=== PATIENT | female | born 1985 | race African-American/Black ===

== ENCOUNTER 2017-04-10 00:43 | Emergency (ER) | payer OTHER, SELFPAY ==
[2017-04-10] MEDS ORDERED: Acetaminophen 500 MG TAB ONE (00:55)
--- NOTE | 2017-04-10 09:02 | RAD ---
RIGHT KNEE 4 VIEWS: HISTORY: Injury. COMPARISON: None. FINDINGS: Trace joint effusion. No acute fracture or malalignment. IMPRESSION: No acute fracture or malalignment. POS: [facility]
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
== END 2017-04-10 03:07 | disposition home or self-care (01) ==
LOC: ERS 00:43
DX: S00.03XA Contusion of scalp, initial encounter (principal); S00.83XA Contusion of other part of head, initial encounter; J45.909 Unspecified asthma, uncomplicated; F17.210 Nicotine dependence, cigarettes, uncomplicated; Y08.89XA Assault by other specified means, initial encounter
CPT/HCPCS: 70450; 70486; 81025

== ENCOUNTER 2017-09-28 13:10 | Day surgery (SDC) | payer OTHER ==
[2017-09-28 13:37] VITALS: BMI 27.2
[2017-09-28 13:42] VITALS: BP 107/70; TEMP 98.9
--- NOTE | 2017-09-28 14:20 | PDOC.LDHP ---
Labor and Delivery H&P Chief complaint: other (Was visiting patient in the ICU and [place] dizzy and wanted her BP checked.) HPI: This is a 32 yo F @ 23w5d presents w/ PMH of anemia of , uterine fibroids posterior, dizziness after standing for a prolonged period in the ICU when visiting a patient. She states that this happened in the past when she was standing too long. She has had allergies for the past few weeks, + sinus congestion, sinus headache. Otherwise, no complaints. No LOF, vaginal bleeding, CTX, abdominal pain. Denies any fevers, chills, CP, SOB. She states that she doesn't drink very much water, and has been visiting patient in the ICU and has been standing more than usual. Dating criteria: last menstrual period (C/o 12.4 wk us) Grav: 6 Para: 5 Current complications: none Abnormal US findings: Yes (Posterior uterine fibroids) Past Medical History: 1) Posterior Uterine fibroids 2) Anemia of Current medications: pre-bhavesh vitamins, iron, other (Zyrtec PRN) Previous surgical history: other (umbilical hernia repairs ) Social history: tobacco use (Quit 3 months ago) - Physical Exam Vital signs reviewed and normal: yes General: NAD, resting Heart: RRR Lungs: nonlabored breathing Abdomen: NTTP Extremeties: no edema - Assessment This is a 32 yo AAF @ 23w5d presents w/ dizziness. A/P: 1) Dizziness in - likely 2/2 to dehydration. Will fluid resuscitate patient. Patient is back to baseline. Orthostatic vital signs currently normal. BG 107. 2) IUP - FHT wnl. No CTX or concerns. F/u with OB. 2) Seasonal Allergies - Currently taking Zyrtec PRN. F/u with OB. 3) Anemia of - will check H&H to r/o symptomatic anemia. No current s &s of bleeding 4) Posterior uterine fibroids - f/u with OB. <Suzan Youngblood - Last Filed: 09/28/17 14:52> <David Metcalf - Last Filed: 09/30/17 15:20> Allergies/Adverse Reactions: Allergies Allergy/AdvReac Type Severity Reaction Status Date / Time No Known Allergies Allergy Verified 12/15/12 10:54 Attending Addendum - Attending Addendum Date/Time: 09/30/17 5265 I personally evaluated the patient and discussed the management with Dr. Youngblood. I agree with the History, Examination, Assessment and Plan documented above with any addition or exceptions noted below. 32 y.o. @ 23.5 weeks EGA with typical s/s's of . Encouraged increased hydration to maintain volume for adequate perfusion and prevention of dizziness experienced. tracings and objective findings are c/w normal . <David Metcalf - Last Filed: 09/30/17 15:20>
[2017-09-28 14:43] LABS: Hemoglobin 9.8 g/dL (12.0-16.0); Mean Corpuscular HGB CONC 32.4 g/dL (32.0-36.0); Mean Corpuscular Hemoglobin 29.2 pg (27.0-31.0); Mean Platelet Volume 7.1 fL (7.4-10.4); Platelet Count 243 thou/uL (130-400); RBC Distribution Width 12.9 % (11.5-14.5); Red Blood Cell (RBC) Count 3.35 mill/uL (4.20-5.40); White Blood Cell (WBC) Count 8.7 thou/uL (4.8-10.8)
== END 2017-09-28 15:08 | disposition home or self-care (01) ==
LOC: L&D/OP 13:10
PROVIDERS: ATTEND Family Medicine
DX: O99.89 Other specified diseases and conditions complicating pregnancy, childbirth and the puerperium (principal); R42 Dizziness and giddiness; O99.012 Anemia complicating pregnancy, second trimester; D64.9 Anemia, unspecified; O34.12 Maternal care for benign tumor of corpus uteri, second trimester; D25.9 Leiomyoma of uterus, unspecified; Z3A.23 23 weeks gestation of pregnancy; Z87.891 Personal history of nicotine dependence; Z79.899 Other long term (current) drug therapy
CPT/HCPCS: 36415; 36416; 85027

== ENCOUNTER 2017-10-09 22:26 | Emergency (ER) | payer OTHER ==
[2017-10-10] MEDS ORDERED: Metoclopramide 10 MG/10 ML UDCUP ONE (00:08)
[2017-10-10] MEDS ORDERED: diphenhydrAMINE 50 MG/ML VIAL ONE (00:08)
[2017-10-10] MEDS ORDERED: Promethazine HCl 25 MG/ML VIAL ONE (00:09)
[2017-10-10 02:25] LABS: Bilirubin Negative (Negative); Blood, Urine Negative (Negative); Clarity CLEAR (Clear); Glucose, Urine (Dipstick) Negative (Negative); Leukocyte Small (Negative); Nitrite Negative (Negative); Protein, Urine (Dipstick) Negative (Neg-Trace); Specific Gravity, Urine 1.009 (1.002-1.036)
[2017-10-10 02:28] LABS: Bacteria/HPF None Seen HPF (None Seen); Hyaline Casts/LPF 0-3 HYALINE CAST LPF (0-3 Hyaline); Pathc Cast-AUWi Flag 0.58 (0-2.49); RBC/HPF 0-3 HPF (0-3); Squamous Epithelial 0-3 HPF (0-3)
--- NOTE | 2017-10-10 08:33 | CT ---
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 Headache worse with bright lights or loud noises. Denies n/v. Also reports blurry visi on that started with headache. Pt states she gets headaches occassionally but has never had a headache this bad in the past. TECHNIQUE: Axial computed tomography images of the head/brain without intravenous contrast. COMPARISON: No relevant prior studies available. FINDINGS: Brain: Mild volume loss No hemorrhage. No significant white matter disease. No edema. Ventricles: Unremarkable. No ventriculomegaly. Bones/joints: Unremarkable. No acute fracture. Soft tissues: Unremarkable. Sinuses: There is mild mucosal thickening of the bilateral ethmoid air cells. No acute sinusitis. Mastoid air cells: Unremarkable as visualized. No mastoid effusion. IMPRESSION: No intracranial hemorrhage. Please see discussion above. Thank you for allowing us to participate in the care of your patient. Dictated and Authenticated by: Too Angeles MD 10/10/2017 1:28 AM Central Time ([place] & [place]) FINAL REPORT EMERGENCY AFTER HOURS BRAIN CT WITHOUT IV CONTRAST: Date: 10/10/17 Time: 0116 hours IMPRESSION: Mild sinus mucosal disease. Motion artifact No mass or bleed, or other acute process. Stable from yani or study of 04/10/17. Report in agreement with preliminary report given on-call by [facility]. POS: [facility]
== END 2017-10-10 03:18 | disposition home or self-care (01) ==
LOC: ERS 22:26
DX: O99.89 Other specified diseases and conditions complicating pregnancy, childbirth and the puerperium (principal); R51 Headache; O23.42 Unspecified infection of urinary tract in pregnancy, second trimester; O99.512 Diseases of the respiratory system complicating pregnancy, second trimester; O99.332 Smoking (tobacco) complicating pregnancy, second trimester
CPT/HCPCS: 70450; 81003; 81015; 96365; 96375; J1200; J2550

== ENCOUNTER 2018-01-17 22:00 | Inpatient (IN) | payer OTHER ==
[~2018-01-17 22:00] MED LIST: Bupivacaine 0.25% HCL 30 ML VIAL ONE
[2018-01-17 22:49] VITALS: BMI 27.8
--- NOTE | 2018-01-18 00:37 | PDOC.EVN ---
Event Note - Event Note Event Note: Date/Time: 01/18/18 0037 I personally evaluated the patient and discussed the management with Dr. Gomes. I agree with the History, Examination, Assessment and Plan. Resident H&P is pending.
[2018-01-18] MEDS ORDERED: Ondansetron HCl/PF 4 MG/2 ML Vial IVP PRN ×2 (00:55→10:18)
[2018-01-18] MEDS ORDERED: Promethazine HCl 25 MG/ML VIAL IM PRN ×2 (00:55→10:18)
[2018-01-18] MEDS ORDERED: Penicillin G Potassium 5 MILL.UNITS in Sodium Chloride 0.9% 100 ML IVPB SCH (01:00)
[2018-01-18 01:20] LABS: Hemoglobin 10.6 g/dL (12.0-16.0); Mean Corpuscular HGB CONC 34.3 g/dL (32.0-36.0); Mean Corpuscular Hemoglobin 29.5 pg (27.0-31.0); Mean Platelet Volume 8.5 fL (7.4-10.4); Platelet Count 186 thou/uL (130-400); Red Blood Cell (RBC) Count 3.61 mill/uL (4.20-5.40); White Blood Cell (WBC) Count 8.2 thou/uL (4.8-10.8)
[2018-01-18] MEDS: Lactated Ringer's 1,000 ML IV SCH ×3 (01:36→10:25)
[2018-01-18] MEDS: Misoprostol 100 MCG TAB VAG SCH ×3 (01:57→18:02)
[2018-01-18 02:03] LABS: HBSAg Index 0.18 S/CO (0-0.99); HIV (1/2) Antibody/Antigen Non-Reactive (NonReactive); Hep B Surf Ag Non-Reactive S/CO (NonReactive)
--- NOTE | 2018-01-18 02:46 | PDOC.LDHP ---
Labor and Delivery H&P Chief complaint: scheduled induction HPI: 32F @ 39.4 presents for scheduled induction. complicated by anterior uterine fibroid and h/o anemia of . Current gestational age (weeks): 39 (39 and 4 days) Due date: 01/20/18 Dating criteria: last menstrual period Grav: 6 Para: 5 Current complications: other (Anterior fibroid, h/o anemia of , GBS+) Abnormal US findings: Yes (Anterior fibroid, did not show up on US at [facility]) Past Medical History: Bacterial vaginosis and yeast infection Current medications: pre-bhavesh vitamins, iron, other (Zrytec) Previous surgical history: none Social history: none - Physical Exam Vital signs reviewed and normal: yes General: NAD, resting, breathing through contractions Heart: RRR Lungs: CTAB Abdomen: gravid Extremeties: no edema FHT: category 1, acceleration absent, variability present - Vaginal Exam cm dilated: 3 Effacement: 50% Station: -2 - OB Labs Blood type: O RH: positive Antibody Screen: negative HIV: negative RPR: negative HEPSAg: negative 1 hour GCT: negative Rubella: immune - Assessment L&D Assessment: elective induction at term - Plan Plan: admit to L&D, cervical ripening, anesthesia consult for pain management <Karthikeyan Peers M - Last Filed: 01/18/18 02:40> <Daniel Blair - Last Filed: 01/18/18 07:26> Allergies/Adverse Reactions: Allergies Allergy/AdvReac Type Severity Reaction Status Date / Time No Known Allergies Allergy Verified 12/15/12 10:54 Attending Addendum - Attending Addendum Date/Time: 01/18/18 0725 I personally evaluated the patient and discussed the management with Dr. Gomes and Dr Peres early this morning. I agree with the History, Examination, Assessment and Plan documented above with any addition or exceptions noted below. <Daniel Blair - Last Filed: 01/18/18 07:26>
[2018-01-18] MEDS ORDERED: Penicillin G 2.5 MILL.units 50 ML ONE ×2 (05:06→09:23)
[2018-01-18] MEDS: Penicillin G Potassium 2.5 MILL.UNITS in Sodium Chloride 0.9% 100 ML IVPB SCH ×4 (05:27→23:41)
--- NOTE | 2018-01-18 05:39 | PDOC.OBLPN ---
FMR OB Labor PN: Subj - Interval History Hospital Day: 2 Chief Complaint: Pt feeling contractions. Baby moving. No LOF or vag bleeding. FMR OB Labor PN: Obj - Maternal Vital signs: BP 116/55, P 71 FMR OB Labor PN: Exam - Physical Exam General: NAD, awake, alert and oriented HEENT: normocephalic and atraumatic Heart: RRR, normal S1/S2, no murmurs/rubs/gallops General: CTAB, no respiratory distress Abdomen: gravid - Pelvic Exam Vulva: normal hair distribution Cervix: no masses SVE: 3/70/-2 Ledesma score: 8 Membranes: intact Presentation: cephalic FMR OB Labor PN: Data - Labs Lab results: Laboratory Results - last 24 hr 01/18/18 01/18/18 01/18/18 00:00 00:00 00:00 WBC 8.2 RBC 3.61 L Hgb 10.6 L Hct 31.0 L MCV 86.0 MCH 29.5 MCHC 34.3 RDW 14.0 Plt Count 186 MPV 8.5 Hep Bs Antigen Non-Reactive HIV 1&2 Antigen & Ab Non-Reactive Blood Type O POSITIVE Antibody Screen NEGATIVE FMR OB Labor PN: A/P Disposition: 32 yo F, 39.5 wk via 12.4 wk sono, IOL IOL SVE: 3/70/-2 Ledesma score: 8 FHTS: baseline 135, mod variability, good accels, no decels; FHTs reassuring Last cytotec @ 0200 Continue monitoring progress. Anesthesia consult available for pain management. Discussion: Date/Time: 01/18/18 0856 This H&P was discussed with [] and [] who agree with the above documentation and plan. Attending Addendum - Attending Addendum Date/Time: 01/18/18 9378 I personally evaluated the patient and discussed the management with Dr. Gomes I agree with the History, Examination, Assessment and Plan documented above with any addition or exceptions noted below. Will start pitocin for augmentation. Blair
[2018-01-18 06:33] LABS: Syphilis Antibody Nonreactive (Nonreactive); Syphilis Antibody Index 0.04 S/CO (<1.00 Non-Reactive)
[2018-01-18] MEDS ORDERED: NS w/ Oxytocin 10 units 500 ML IV SCH (08:15)
[2018-01-18] MEDS ORDERED: Bupivacaine 0.5% 20 ML, fentaNYL Citrate/PF 400 MCG in Sodium Chloride 0.9% 72 ML EPIDURAL SCH (09:15)
[2018-01-18] MEDS ORDERED: DISCONTINUE ALL PREVIOUS NARCOTICS FS SCH (09:15)
--- NOTE | 2018-01-18 09:18 | PDOC.LDPN ---
Labor & Delivery Progress Note - Subjective Subjective: comfortable - Objective Vital signs reviewed and normal: yes General: NAD Uterine fundus: non tender SVE: 8:00 Dilation: 4 Effacement: 75% Station: -1 FHT: category 1 [place] contractions every: 3-4 minutes - Assessment (1) Current Visit: Yes Status: Acute QualifierTitle: Weeks of gestation: 39 weeks Qualified Code(s): Z3A.39 - 39 weeks gestation of (2) Uterine fibroid Code(s): D25.9 - LEIOMYOMA OF UTERUS, UNSPECIFIED Current Visit: Yes Status : Acute QualifierTitle: Uterine leiomyoma location: unspecified location Qualified Code(s): D25.9 - Leiomyoma of uterus, unspecified (3) Group B streptococcal infection during Code(s): O98.819 - OTH MATERNAL INFEC/PARASTC DISEASES COMP PREG, UNSP TRI; B95.1 - STREPTOCOCCUS, GROUP B, CAUSING DISEASES CLASSD ELSWHR Current Visit: Yes Status: Acute Plan: continue plan of care, pitocin for augmentation -: G6PP5 @ 39.5 days dated by LMP here for elective induction -Has recieved cytotec x1. SVE she is now /-1 -Will begin pitocin for augmentation of labor -FHT category 1 strip. Continue to monitor GBS + -Penicllin q4hr for ppx Anemia of -Was on Iron BID -Hgb 10.6 on admission Uterine fibroid -uterine fibroid was noted early in . Was seen anterior and then posterior on 2T U/S. Pt had recent growth scan in 3T. growing appropriately. Fibroid was not seen on most recent U/S. <Delvis Chacon - Last Filed: 01/18/18 09:19> Attending Addendum - Attending Addendum Date/Time: 01/18/18 1413 I personally evaluated the patient and discussed the management with Dr. Chacon I agree with the History, Examination, Assessment and Plan documented above with any addition or exceptions noted below. 32 yo female at 39.5 wks by 12.4 wk sono admitted for elective IOL. Patient doing well. Epidural requested for pain control. Fetus cephalic by sono. EFW =7.5 to 8 lbs. Cat 1 tracing. Will start pitocin per protocol for augmentation. Discussed AROM if needed. Patient agreeable. Continue PCN q 4 hours. Has received adequate treatment at this time. Will monitor closely for PPH due to risk factors -- grandmultip and fibroid. Blair <Tri Francisco - Last Filed: 01/18/18 14:17>
[2018-01-18] MEDS ORDERED: Acetaminophen 325 MG TAB PO PRN (10:18)
[2018-01-18] MEDS ORDERED: Eucerin (Mineral Oil/Petrolatum,White) 30 gm Jar TOP PRN (10:18)
[2018-01-18] MEDS ORDERED: Naloxone HCl 0.4 mg/ml Vial IVP PRN ×2 (10:18)
[2018-01-18] MEDS ORDERED: diphenhydrAMINE 50 MG/ML VIAL IVP PRN (10:18)
[2018-01-18] MEDS ORDERED: Lactated Ringer's 500 ML IV PRN (10:18)
[2018-01-18] MEDS ORDERED: ePHEDrine/0.9% NaCl/PF SYRINGE 50 mg/10 ml SLOW IVP PRN (10:18)
[2018-01-18] MEDS ORDERED: fentaNYL Citrate/PF 400 MCG, Bupivacaine 0.5% 20 ML in Sodium Chloride 0.9% 72 ML EPIDURAL SCH (10:30)
[2018-01-18] MEDS ORDERED: Communication Order-Pharmacy FS SCH (10:30)
--- NOTE | 2018-01-18 13:12 | PDOC.LDPN ---
Labor & Delivery Progress Note - Subjective Subjective: comfortable - Objective Vital signs reviewed and normal: yes General: NAD, resting Uterine fundus: non tender SVE: 12:30 Dilation: 5 Effacement: 75% Station: -1 FHT: category 1 (FHT 130) [place] contractions every: 3-4 minutes AROM: clear fluid IUPC placed: yes - Assessment (1) Current Visit: Yes Status: Acute QualifierTitle: Weeks of gestation: 39 weeks Qualified Code(s): Z3A.39 - 39 weeks gestation of (2) Uterine fibroid Code(s): D25.9 - LEIOMYOMA OF UTERUS, UNSPECIFIED Current Visit: Yes Status : Acute QualifierTitle: Uterine leiomyoma location: unspecified location Qualified Code(s): D25.9 - Leiomyoma of uterus, unspecified (3) Group B streptococcal infection during Code(s): O98.819 - OTH MATERNAL INFEC/PARASTC DISEASES COMP PREG, UNSP TRI; B95.1 - STREPTOCOCCUS, GROUP B, CAUSING DISEASES CLASSD ELSWHR Current Visit: Yes Status: Acute Plan: pitocin for augmentation -: G6PP5 @ 39.5 days dated by LMP here for elective induction -Has recieved cytotec x1. SVE she is now /-1 -On pitocin for labor augmentation. AROM performed. Clear fluid noted. IUPC placed as ctx would come and go on monitor. -FHT category 1 strip. Continue to monitor. -q2 hour checks. GBS + -Penicllin q4hr for ppx Anemia of -Was on Iron BID -Hgb 10.6 on admission Uterine fibroid -uterine fibroid was noted early in . Was seen anterior and then posterior on 2T U/S. Pt had recent growth scan in 3T. Infant growing appropriately. Fibroid was not seen on most recent U/S. <Delvis Chacon - Last Filed: 01/18/18 13:13> Attending Addendum - Attending Addendum Date/Time: 01/18/18 8080 I personally evaluated the patient and discussed the management with Dr. Chacon I agree with the History, Examination, Assessment and Plan documented above with any addition or exceptions noted below. 32 yo female at 39.5 wks by 12.4 wk sono admitted for elective IOL. Patient doing well. Epidural in place. Fetus cephalic by sono. EFW =7.5 to 8 lbs. Cat 1 tracing. Continue pitocin per protocol for augmentation. Now s/p AROM. Clear fluid. IUPC placed. Continue PCN q 4 hours. Has received adequate treatment at this time. Will monitor closely for PPH due to risk factors -- grandmultip and fibroid. Repeat exam prn vs q 2 ABrayMD <Tri Francisco - Last Filed: 01/18/18 14:57>
[2018-01-18] MEDS ORDERED: NS / Oxytocin 40 units/1000ml 1,000 ML ONE (14:09)
[2018-01-18] MEDS ORDERED: Lidocaine 1% (PF) 30 ML VIAL ONE (14:09)
[2018-01-18] MEDS ORDERED: Misoprostol 200 MCG TAB ONE (14:18)
[2018-01-18] MEDS ORDERED: Bisacodyl 10 MG SUPP PR PRN (14:39)
[2018-01-18] MEDS ORDERED: Milk Of Magnesia 30 ML UDCUP PO PRN (14:39)
[2018-01-18] MEDS ORDERED: Preparation H Ointment 28 GM TUBE PR PRN (14:39)
[2018-01-18] MEDS ORDERED: Lanolin Ointment 7 GM TUBE TOP PRN (14:39)
[2018-01-18] MEDS ORDERED: diphenhydrAMINE 25 MG CAP PO PRN (14:39)
[2018-01-18] MEDS ORDERED: NS / Oxytocin 40 units/1000ml 1,000 ML IV SCH (14:45)
[2018-01-18] MEDS ORDERED: Misoprostol 100 MCG TAB VAG SCH (14:45)
--- NOTE | 2018-01-18 14:57 | PDOC.OPDEL ---
OB Operative/Delivery Note Delivery Dr/Surgeon: MD Oswaldo. MD Nolan Pre-Delivery Diagnosis: elective induction Procedure/Post Delivery Dx: spontaneous vaginal delivery Weeks gestation: 39 (5 days) Anesthesia: epidural - Findings A Sex: female - 1 min: 9 - 5 min: 9 - Additional Findings/Plan Placenta delivered: spontaneous Repaired Obstetrical Laceration: none Estimated blood loss: 475 Compilations/Other Findings: Pre-Op Diagnosis: 1. TIUP 2. Anemia of 3. Uterine Fibroid present on 1T and 2T U/S 4. Recurrent BV infections Post-Op Diagnosis: 1. TIUP, delivered 2. Same as above. Indications: A 32 yo female presents to L&D for elective induction. Delivery Note: This is a 32 yo @ 39.5 weeks who delivered a viable F infant at 14:21. Following an uneventful antepartum course, a viorous F was delivered over an intact perineum in the occipitoanterior position. Anterior shoulder and then remainder of body delivered. No nuchal cord. The head as held down and mouth and nares were bulb suctioned. Cord clamped and cut and cord blood collected. Placenta delivered intact w/ a 3 vessel cord noted. Fundal massage was performed and the fundus was firm. 800 mg of Cytotec was placed rectally due to multiparity of patient. The cervix and vagina were inspected and found to be free of lacerations. went to nursery in good condition for routine care. Apgars were 9,9 & 1&5 minutes, respectively. Pt tolerated delivery well and went to after routine recovery/care. Post delivery plan: routine recovery <Delvis Chacon - Last Filed: 01/19/18 06:53> - Additional Findings/Plan Compilations/Other Findings: I was present for and participated in the above documented delivery. Uncomplicated of viable female infant. No lacerations. Routine pp care. . ABrayMD <Tri Francisco - Last Filed: 01/20/18 12:36>
[2018-01-18] MEDS: Pen G 2.5 MILL.UNITS/50 ML BAG IVPB SCH ×3 (18:00→23:36)
[2018-01-18] MEDS: Ibuprofen 800 MG TAB PO PRN (19:42)
[2018-01-18] MEDS ORDERED: Acetaminophen/Codeine 30-300mg Tablet PO PRN (23:40)
[2018-01-19] MEDS: Acetaminophen/Codeine 30-300mg Tablet PO PRN ×3 (00:22→08:46)
[2018-01-19] MEDS: Lactated Ringer's 1,000 ML IV SCH (04:02)
[2018-01-19] MEDS: Pen G 2.5 MILL.UNITS/50 ML BAG IVPB SCH ×2 (04:03→07:39)
[2018-01-19] MEDS: Penicillin G Potassium 2.5 MILL.UNITS in Sodium Chloride 0.9% 100 ML IVPB SCH ×2 (04:04→07:39)
[2018-01-19] MEDS: Ibuprofen 800 MG TAB PO PRN (04:28)
--- NOTE | 2018-01-19 06:55 | PDOC.OBPPN ---
FMR OB PN: Subj - Interval History Hospital Day: 2 Day: 1 Chief Complaint: No complaint offered Indentification: ->6 delivered EPHRAIM F @ 39.5 weeks FMR OB PN: Obj - Maternal Vital signs: BP: [115/75] HR: [52] RR: [18] Tmax: [97.9] Wt: [80.7 kg] - Urine output I&O: Has urinated and stooled overnight - Lochia Lochia: Reports normal lochia. No heavy bleeding - Pain Management Intervention: oral medication FMR OB PN: Exam - Physical Exam General: NAD, awake, alert and oriented HEENT: normocephalic and atraumatic Heart: RRR, normal S1/S2, no murmurs/rubs/gallops, pulses present General: CTAB, no respiratory distress, good air movement, no wheezing Abdomen: soft, gravid, fundus(cm) (below umbilicus), non-tender, no masses Neurological: sensation to pain,touch and proprioception grossly normal Skin: no rash Lymphatic: no unusual bruising or bleeding FMR OB PN: A/P - Problem List (1) Status: Acute Qualifiers: Weeks of gestation: 39 weeks Qualified Code(s): Z3A.39 - 39 weeks gestation of (2) Uterine fibroid Status: Acute Code(s): D25.9 - LEIOMYOMA OF UTERUS, UNSPECIFIED Qualifiers: Uterine leiomyoma location: unspecified location Qualified Code(s): D25.9 - Leiomyoma of uterus, unspecified (3) Group B streptococcal infection during Status: Acute Code(s): O98.819 - OTH MATERNAL INFEC/PARASTC DISEASES COMP PREG , UNSP TRI; B95.1 - STREPTOCOCCUS, GROUP B, CAUSING DISEASES CLASSD ELSWHR Disposition: delivered a viable EPHRAIM female @ 14:21 yesterday. Apgars 9,9. -Cytotec 800 mg given ppx to prevent bleeding. Pt reports some cramping yesterday. -Reports normal lochia. -Has gotten up and moved around. Denies any dizziness, AVILES, lightheadness. -Eating well. Going to the restroom without issues -continue routine post care. -Ibuprofen prn for pain - consult consulted. Pt . GBS+ -Tx w/ penicillin during labor Uterine Fibroid seen on 1T and 2T u/s Discussion: Date/Time: 01/19/18 3774 This H&P was discussed with [] and [] who agree with the above documentation and plan. Attending Addendum - Attending Addendum Date/Time: 01/19/18 1051 I personally evaluated the patient and discussed the management with Dr. Chacon I agree with the History, Examination, Assessment and Plan documented above with any addition or exceptions noted below. 32 yo female s/p uncomplicated . PPD#1 Doing well. Pain controlled with oral medications. Lochia appropriate. VS reviewed. Will continue to monitor. Continue routine pp care. LARC for pp contraception Blair
[2018-01-19] MEDS: Prenatal Vitamin 1 TAB PO SCH (08:45)
[2018-01-19] MEDS ORDERED: Adacel (T-DAP) 0.5 ML VIAL IM ONE (09:00)
[2018-01-19] MEDS ORDERED: Simethicone Chewable 80 MG TAB PO SCH (09:45)
[2018-01-19] MEDS: Ibuprofen 800 MG TAB PO SCH ×2 (14:40→21:52)
[2018-01-19] MEDS: Docusate 100 MG CAP PO PRN (20:24)
[2018-01-20] MEDS: Ibuprofen 800 MG TAB PO SCH (05:49)
--- NOTE | 2018-01-20 07:58 | PDOC.OBPPN ---
FMR OB PN: Subj - Interval History Hospital Day: 3 Day: 2 Chief Complaint: No concerns or complaints Interval History: Pain being well controlled. eating, ambulating. Normal lochia. FMR OB PN: Obj - Maternal Vital signs: BP: [117/85] HR: [66] RR: [20] Tmax: [98.6] - Lochia Lochia: Reporting normal lochia. Not heavy - Pain Management Intervention: oral medication FMR OB PN: Exam - Physical Exam General: NAD, awake, alert and oriented HEENT: normocephalic and atraumatic Heart: RRR, normal S1/S2, no murmurs/rubs/gallops, pulses present General: CTAB, no respiratory distress, good air movement, no wheezing Abdomen: soft, gravid, fundus(cm) (Below umbilicus), non-tender Musculoskeletal: pulses present Neurological: sensation to pain,touch and proprioception grossly normal Skin: no rash, good tugor FMR OB PN: A/P - Problem List (1) Status: Acute Qualifiers: Weeks of gestation: 39 weeks Qualified Code(s): Z3A.39 - 39 weeks gestation of (2) Uterine fibroid Status: Acute Code(s): D25.9 - LEIOMYOMA OF UTERUS, UNSPECIFIED Qualifiers: Uterine leiomyoma location: unspecified location Qualified Code(s): D25.9 - Leiomyoma of uterus, unspecified (3) Group B streptococcal infection during Status: Acute Code(s): O98.819 - OTH MATERNAL INFEC/PARASTC DISEASES COMP PREG , UNSP TRI; B95.1 - STREPTOCOCCUS, GROUP B, CAUSING DISEASES CLASSD ELSWHR Disposition: delivered a viable TAGA female @ 14:21 yesterday. Apgars 9,9. -Cytotec 800 mg given ppx to prevent bleeding. Pt reported cramping a few days ago. Has resolved. -Reports normal lochia. -Has gotten up and moved around. Denies any dizziness, AVILES, lightheadness. -Eating well. Going to the restroom without issues -continue routine post care. -Ibuprofen emanuel for pain. Tylenol prn. Pain being controlled -Pt . Saw consult yesterday. Infant latching well. Breast pump ordered as well. GBS+ -Tx w/ penicillin during labor Uterine Fibroid seen on 1T and 2T u/s Discussion: Date/Time: 01/19/18 0654 Discussion: Date/Time: 01/20/18 8706 This H&P was discussed with [] and [] who agree with the above documentation and plan. Attending Addendum - Attending Addendum Date/Time: 01/20/18 9191 I personally evaluated the patient and discussed the management with Dr. Chacon I agree with the History, Examination, Assessment and Plan documented above with any addition or exceptions noted below. 32 yo female s/p uncomplicated . PPD#2 Doing well. No complications overnight. Breast feeding improved. Lochia mild. Pain well controlled. VS reviewed. Fundus firm below umbilicus. Nontender. Ok to d/c to home. Blair
[2018-01-20 08:01] VITALS: BP 106/73; TEMP 97.8
[2018-01-20] MEDS: Prenatal Vitamin 1 TAB PO SCH (09:31)
[2018-01-20] MEDS: Docusate 100 MG CAP PO PRN (09:31)
== END 2018-01-20 12:25 | DRG 775 ==
LOC: L&D 22:20 → 3SW 01-18 17:49
PROVIDERS: ADMIT Family Medicine; ATTEND Family Medicine
PROC: 3E033VJ Introduction of Other Hormone into Peripheral Vein, Percutaneous Approach (ICD-10-PCS; 2018-01-17)
PROC: 10E0XZZ Delivery of Products of Conception, External Approach (ICD-10-PCS; principal; 2018-01-18)
PROC: 10H07YZ Insertion of Other Device into Products of Conception, Via Natural or Artificial Opening (ICD-10-PCS; 2018-01-18)
PROC: 4A1H7CZ Monitoring of Products of Conception, Cardiac Rate, Via Natural or Artificial Opening (ICD-10-PCS; 2018-01-18)
DX: O99.824 Streptococcus B carrier state complicating childbirth (principal); O34.13 Maternal care for benign tumor of corpus uteri, third trimester; O99.02 Anemia complicating childbirth; Z3A.39 39 weeks gestation of pregnancy; Z37.0 Single live birth; D25.9 Leiomyoma of uterus, unspecified
CPT/HCPCS: 51702; 85027; 86780; 86850; 86900; 86901; 87340; 87389; J2001; J2540; J3010; J3490; J7050; S0020

== ENCOUNTER 2019-03-16 05:30 | Inpatient (IN) | payer OTHER ==
--- NOTE | 2019-03-15 17:11 | PDOC.FPROB ---
FMR OB H&P: HPI - History of Present Illness Chief Complaint: elective IOL Indentification: 33 y/o @ 39.2 wks by LMP c/w 20.6 wk US (KILO 03/21/19) History of Present Illness: Pt presents for elective induction of labor. She denies LOF, vaginal bleeding, vaginal d/c, ctx. Endorses movement. Primary Care Physician: Dr. 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 Parra. She reports getting a procedure done and since then all paps have been normal. Last pap May 2017 was NILM. Trichomonas in 2018 that was treated. - Surgical History Sx History: Umbilical hernia repair at 6 months old - Social History Social History: Denies tobacco, EtOH, or drug use - Family History Family History: Denies FMR OB H&P: Medications - Current Home Medications: Medication Instructions Recorded Confirmed Type Vitamin 1 tab PO DAILY #30 tab 01/20/18 03/16/19 Rx Allergies/Adverse Reactions: Allergies Allergy/AdvReac Type Severity Reaction Status Date / Time No Known Allergies Allergy Verified 12/15/12 10:54 FMR OB H&P: ROS - Review of Systems General: denies: fever/chills, fatigue Eyes: denies: vision changes, scotomas ENT: denies: nasal congestion, rhinorrhea, sore throat Cardiovascular: denies: chest pain Respiratory: denies: cough, congestion, shortness of breath Gastrointestinal: denies: abdominal pain, indigestion, cramping, nausea, vomiting, diarrhea Genitourinary (Female): denies: incontinence, dysuria, hematuria, vaginal discharge, vaginal bleeding, contractions Musculoskeletal: reports: stiffness Neurologic: denies: numbness, seizures, weakness Integumentary: denies: rash FMR OB H&P: Vital Signs - Maternal Vital signs: T 98.6, HR 82, RR 18, BP 113/67 - Heart Tones Baseline: 140 Variability: moderate Acceleration: present Deceleration: absent Category: category 1 [place] contractions every: none FMR OB H&P: Physical Exam - Physical Exam General: NAD, awake, alert and oriented HEENT: EOMI, MMM Neck: supple, trachea midline Heart: RRR, normal S1/S2, no murmurs/rubs/gallops, no edema General: CTAB, no respiratory distress, good air movement, no rales/rhonchi, no wheezing Abdomen: soft, gravid, non-tender, bowel sound present Musculoskeletal: normal gait and station Neurological: no focal deficit Skin: no rash Psychiatric: normal mood and affect - Pelvic Exam SVE: /-2 Membranes: intact FMR OB H&P: A/P - Problem List (1) Term Status: Acute Code(s): Z34.90 - ENCNTR FOR SUPRVSN OF NORMAL , UNSP, UNSP TRIMESTER Comment: Cervical change made with pitocin Pt desires epidural at this time -Will continue pitocin and cervical checks -If no change at next check will AROM Assessment and Plan: Admit to L&D for IOL -Initiate pitocin for induction -Consult anesthesia for epidural if desired -Continuous monitoring -LR @ 125 -Monitor cervical exams (2) Short interval between pregnancies affecting in third trimester, antepartum Status: Acute Code(s): O09.893 - SUPERVISION OF OTHER HIGH RISK PREGNANCIES, THIRD TRIMESTER Assessment and Plan: Growth US appropriate (3) Anemia Status: Acute Code(s): D64.9 - ANEMIA, UNSPECIFIED Assessment and Plan: Pt on iron (4) Grand multiparity Status: Acute Code(s): Z64.1 - PROBLEMS RELATED TO MULTIPARITY Assessment and Plan: Risk for PPH -Will monitor closely (5) Placental abnormality in third trimester Status: Acute Code(s): O43.103 - MALFORMATION OF PLACENTA, UNSPECIFIED, THIRD TRIMESTER Assessment and Plan: Grade III placenta on recent US -Induction of labor -Monitor FHT Disposition: Admit to L&D Discussion: Date/Time: 03/15/19 4268 This H&P was discussed with Dr. Blair who agrees with the above documentation and plan. Signature: Nadeen Coyle MD, PGY-3 Addendum - Attending - Attending Attestation Date/Time: 03/16/19 1150 I personally evaluated the patient and discussed the management with Dr. Coyle this morning. I agree with the History, Examination, Assessment and Plan documented above with any addition or exceptions noted below.
[2019-03-16] MEDS ORDERED: Ondansetron PF 4 MG/2 ML Vial IVP PRN ×2 (05:58→12:17)
[2019-03-16] MEDS ORDERED: Ibuprofen 800 MG TAB PO PRN (05:58)
[2019-03-16] MEDS ORDERED: Butorphanol Tartrate 1 MG/ML VIAL SLOW IVP PRN (05:58)
[2019-03-16] MEDS ORDERED: Promethazine HCl 25 MG/ML VIAL IM PRN ×2 (05:58→12:17)
[2019-03-16] MEDS ORDERED: NS w/ Oxytocin 10 units 500 ML IV SCH (05:58)
[2019-03-16] MEDS ORDERED: Lidocaine 1% (PF) 30 ML VIAL SC PRN (05:58)
[2019-03-16] MEDS ORDERED: hydrALAZINE 20 MG/ML VIAL SLOW IVP PRN ×2 (05:58→19:21)
[2019-03-16 06:06] VITALS: BMI 29.8
[2019-03-16] MEDS: Lactated Ringer's 1,000 ML IV SCH ×2 (06:37→10:42)
[2019-03-16 06:42] LABS: Mean Corpuscular HGB CONC 34.3 g/dL (32.0-36.0); Mean Corpuscular Hemoglobin 32.2 pg (27.0-31.0); Mean Corpuscular Volume 93.6 fL (78.0-98.0); Mean Platelet Volume 8.5 fL (7.4-10.4); Platelet Count 208 thou/uL (130-400); RBC Distribution Width 12.1 % (11.5-14.5); White Blood Cell (WBC) Count 8.4 thou/uL (4.8-10.8)
[2019-03-16 07:24] LABS: Syphilis Antibody Nonreactive (Nonreactive); Syphilis Antibody Index 0.03 S/CO (<1.00 Non-Reactive)
[2019-03-16 07:25] LABS: HBSAg Index 0.22 S/CO (0-0.99); Hep B Surf Ag Non-Reactive S/CO (NonReactive)
[2019-03-16] MEDS ORDERED: Fentanyl 4 mcg/Bup 0.1% Cadd 100 ML ONE (08:29)
--- NOTE | 2019-03-16 10:31 | PDOC.LDPN ---
Labor & Delivery Progress Note - Subjective Subjective: painful contractions - Objective Vital signs reviewed and normal: yes General: NAD Uterine fundus: palpable contractions SVE: 3.5/75/-2 @ [address] Coyle FHT: category 1, variability present [place] contractions every: 2-3 minutes - Assessment (1) Term Code(s): Z34.90 - ENCNTR FOR SUPRVSN OF NORMAL , UNSP, UNSP TRIMESTER Status: Acute Comment: Cervical change made with pitocin Pt desires epidural at this time -Will continue pitocin and cervical checks -If no change at next check will AROM (2) Short interval between pregnancies affecting in third trimester, antepartum Code(s): O09.893 - SUPERVISION OF OTHER HIGH RISK PREGNANCIES, THIRD TRIMESTER Status: Acute (3) Anemia Code(s): D64.9 - ANEMIA, UNSPECIFIED Status: Acute (4) Grand multiparity Code(s): Z64.1 - PROBLEMS RELATED TO MULTIPARITY Status: Acute (5) Placental abnormality in third trimester Code(s): O43.103 - MALFORMATION OF PLACENTA, UNSPECIFIED, THIRD TRIMESTER Status: Acute Plan: continue plan of care, pitocin for augmentation Addendum - Attending - Attending Attestation Date/Time: 03/16/19 7602 I agree with the History, Examination, Assessment and Plan documented above with any addition or exceptions noted below.
[2019-03-16] MEDS ORDERED: Misoprostol 200 MCG TAB ONE (11:37)
[2019-03-16] MEDS ORDERED: Acetaminophen 325 MG TAB PO PRN (12:17)
[2019-03-16] MEDS ORDERED: diphenhydrAMINE 50 MG/ML VIAL IVP PRN (12:17)
[2019-03-16] MEDS ORDERED: Lactated Ringer's 500 ML IV PRN (12:17)
[2019-03-16] MEDS ORDERED: ePHEDrine/0.9% NaCl/PF SYRINGE 50 mg/10 ml SLOW IVP PRN (12:17)
[2019-03-16] MEDS ORDERED: Naloxone HCl 0.4 mg/ml Vial IVP PRN ×2 (12:17)
[2019-03-16] MEDS: NS / Oxytocin 40 units/1000ml 1,000 ML IV PRN ×2 (12:25→14:40)
[2019-03-16] MEDS ORDERED: Fentanyl 4 mcg/Bupivacaine 0.1% Cassette 100 ML EPIDURAL SCH (12:30)
[2019-03-16] MEDS ORDERED: Communication Order-Pharmacy FS SCH (12:30)
--- NOTE | 2019-03-16 12:54 | PDOC.OPDEL ---
OB Operative/Delivery Note Delivery Dr/Surgeon: Dr. Coyel and Dr. Kong with Dr. Blair attending Pre-Delivery Diagnosis: elective induction Procedure/Post Delivery Dx: spontaneous vaginal delivery Weeks gestation: 39 (39w2d) Anesthesia: epidural - Findings A Sex: female - 1 min: 9 - 5 min: 9 - Additional Findings/Plan Placenta delivered: spontaneous Repaired Obstetrical Laceration: 2nd degree (repaired) Estimated blood loss: 375 Compilations/Other Findings: This is a 33 year old female @ 39.2 wks who delivered a viable F infant at 1225. Following an uneventful antepartum course, a vigorous female was delivered over an intact perineum in the occipitoanterior position. Anterior Shoulder and then remainder of the body delivered. Shoulder cord x1. The head was held down and mouth and nares were bulb suctioned. Cord clamped and cut and cord blood collected after 1 minute delayed cord clamping. Placenta delivered intact via Villatoro mechanism with a 3 vessel cord noted. Fundal massage was performed and the fundus was firm. The cervix and vagina were inspected and 2nd degree Laceration noted and repaired with 3-0 Vicryl in the usual fashion with good approximation and hemostasis. Bilateral periurethral lacs noted that were hemostatic. Infant went to nursery in good condition for routine care. Apgars were 9&9 at 1 & 5 minutes, respectively. Patient tolerated delivery well and went to after routine recovery/care. Post delivery plan: routine recovery Addendum - Attending - Attending Attestation Date/Time: 03/16/19 5321 I personally supervised and assisted with delivery.
[2019-03-16] MEDS ORDERED: NS / Oxytocin 40 units/1000ml 1,000 ML IV SCH (19:21)
[2019-03-16] MEDS ORDERED: Milk Of Magnesia 30 ML UDCUP PO PRN (19:21)
[2019-03-16] MEDS ORDERED: Bisacodyl 10 MG SUPP PR PRN (19:21)
[2019-03-16] MEDS ORDERED: Ferrous Sulfate 325 MG TAB PO SCH (19:30)
[2019-03-16] MEDS ORDERED: HYDROcodone/Acetaminophen 5/325 mg Tablet PO PRN (20:54)
[2019-03-16] MEDS: HYDROcodone/Acetaminophen 5/325 mg Tablet PO PRN (21:18)
[2019-03-16] MEDS: Docusate Calcium (SURFAK) 240 MG CAP PO SCH (22:18)
[2019-03-16] MEDS: Ibuprofen 800 MG TAB PO SCH (22:18)
[2019-03-17] MEDS: Ibuprofen 800 MG TAB PO SCH ×3 (05:03→22:40)
[2019-03-17 06:20] LABS: Hemoglobin 9.3 g/dL (12.0-16.0); Mean Corpuscular HGB CONC 33.6 g/dL (32.0-36.0); Mean Corpuscular Hemoglobin 31.9 pg (27.0-31.0); Mean Platelet Volume 8.9 fL (7.4-10.4); Platelet Count 193 thou/uL (130-400); Red Blood Cell (RBC) Count 2.91 mill/uL (4.20-5.40); White Blood Cell (WBC) Count 8.1 thou/uL (4.8-10.8)
[2019-03-17] MEDS: Ferrous Sulfate 325 MG TAB PO SCH ×2 (08:58→16:08)
[2019-03-17] MEDS: Docusate Calcium (SURFAK) 240 MG CAP PO SCH ×2 (08:59→22:40)
[2019-03-17] MEDS: Prenatal Vitamin 1 TAB PO SCH (08:59)
[2019-03-17] MEDS: HYDROcodone/Acetaminophen 5/325 mg Tablet PO PRN (08:59)
[2019-03-17] MEDS ORDERED: Adacel (T-DAP) 0.5 ML SYRINGE IM ONE (09:00)
--- NOTE | 2019-03-17 09:26 | PDOC.OBPPN ---
FMR OB PN: Subj - Interval History Day: 1 33 y/o ->7 delivered via at 1225 on 03/17 Pt reports some cramping abdominal pain that is relieved with PO pain meds. She endorses lochia about the same as a period. She tried to breast feed, but reports her daughter wasn't very interested. She has been walking to the bathroom, but not in the halls. Tolerating PO well. Denies headache, vision changes, chest pain, SOB, swelling. FMR OB PN: Obj - Maternal Vital signs: BP: 105/59 HR: 63 RR: 17 Tmax: 98.3 Pox: 99% on RA Wt: 83.9kg - Urine output I&O: 03/16/19 03/17/19 03/18/19 06:59 06:59 06:59 Output Total 875 Balance -875 FMR OB PN: Exam - Physical Exam General: NAD, awake, alert and oriented HEENT: MMM, conjunctiva clear, grossly normal vision, grossly normal hearing Neck: supple, no LAD Heart: RRR, normal S1/S2, no murmurs/rubs/gallops, pulses present, no edema General: CTAB, no respiratory distress, good air movement, no rales/rhonchi, no wheezing Abdomen: soft, fundus(cm) (firm at level of umbilicus) Musculoskeletal: pulses present Neurological: no clonus, no focal deficit Skin: good tugor, capillary refill <2 seconds : appropriately tender Lymphatic: no unusual bruising or bleeding, no purpura Psychiatric: intact recent and remote memory, good judgement and insight FMR OB PN: Data - Labs Lab results: Laboratory Results - last 24 hr 03/17/19 05:34 WBC 8.1 RBC 2.91 L Hgb 9.3 L Hct 27.6 L MCV 95.0 MCH 31.9 H MCHC 33.6 RDW 12.0 Plt Count 193 MPV 8.9 FMR OB PN: A/P - Problem List (1) Term Status: Acute Code(s): Z34.90 - ENCNTR FOR SUPRVSN OF NORMAL , UNSP, UNSP TRIMESTER Comment: PPD#1 s/p -Continue routine care -Ibuprofen for pain control, has received a few doses of norco as well, but will wean this today -Vitals stable -Encourage ambulation -Encourage breast feeding -Plan for IUD for contraception (2) Anemia Status: Acute Code(s): D64.9 - ANEMIA, UNSPECIFIED Assessment and Plan: Hb 9.3 -Continue iron Disposition: Anticipate d/c home tomorrow Discussion: Date/Time: 03/17/19 5620 This H&P was discussed with Dr. Blair who agrees with the above documentation and plan. Signature: Nadeen Coyle MD, PGY-3 Addendum - Attending - Attending Attestation Date/Time: 03/17/19 1101 I personally evaluated the patient and discussed the management with Dr. Coyle. I agree with the History, Examination, Assessment and Plan documented above with any addition or exceptions noted below.
[2019-03-17] MEDS ORDERED: HYDROcodone/Acetaminophen 5/325 mg Tablet PO PRN (10:39)
[2019-03-17] MEDS ORDERED: Preparation H Ointment 28 GM TUBE PR PRN (18:14)
[2019-03-17] MEDS ORDERED: Preparation H Ointment 57 gram tube RC PRN (18:30)
--- NOTE | 2019-03-18 05:45 | PDOC.OBPPN ---
FMR OB PN: Subj - Interval History Day: 2 33 y/o ->7 delivered via at 1225 on 03/17 Pt reports some cramping abdominal pain that is relieved with PO pain meds, but is improved from yesterday. She endorses minimal lochia. She tried to breast feed, but reports her daughter wasn't very interested. She has been walking in the hallways without difficulty. Tolerating PO well. Denies headache, vision changes, chest pain, SOB, swelling. FMR OB PN: Obj - Maternal Vital signs: BP: 115/70 HR: 67 RR: 17 Tmax: 98.1 Pox: 99% on RA Wt: 83.9kg - Urine output I&O: 03/16/19 03/17/19 03/18/19 06:59 06:59 06:59 Output Total 875 Balance -875 FMR OB PN: Exam - Physical Exam General: NAD, awake, alert and oriented HEENT: MMM, grossly normal vision, grossly normal hearing Neck: supple, no LAD Heart: RRR, normal S1/S2, no murmurs/rubs/gallops, pulses present, no edema General: CTAB, no respiratory distress, good air movement, no rales/rhonchi, no wheezing Abdomen: soft, fundus(cm) (firm 2cm below umbilicus) Musculoskeletal: pulses present, FROM in all four extremities Neurological: no clonus, no focal deficit Skin: good tugor, capillary refill <2 seconds : appropriately tender Psychiatric: intact recent and remote memory, good judgement and insight FMR OB PN: Data - Labs Lab results: Laboratory Results - last 24 hr 03/17/19 05:34 WBC 8.1 RBC 2.91 L Hgb 9.3 L Hct 27.6 L MCV 95.0 MCH 31.9 H MCHC 33.6 RDW 12.0 Plt Count 193 MPV 8.9 FMR OB PN: A/P - Problem List (1) Term Status: Acute Code(s): Z34.90 - ENCNTR FOR SUPRVSN OF NORMAL , UNSP, UNSP TRIMESTER Comment: PPD#2 s/p -Continue routine care -Ibuprofen for pain control -Vitals stable -Encourage ambulation -Encourage breast feeding -Plan for IUD for contraception (2) Anemia Status: Acute Code(s): D64.9 - ANEMIA, UNSPECIFIED Assessment and Plan: Hb 9.3 -Continue iron and PNV Disposition: d/c home today Discussion: Date/Time: 03/18/19 3733 This H&P was discussed with Dr. Blair who agrees with the above documentation and plan. Signature: Nadene Coyle MD, PGY-3 Addendum - Attending - Attending Attestation Date/Time: 03/18/19 5724 I personally evaluated the patient and discussed the management with Dr. Coyle. I agree with the History, Examination, Assessment and Plan documented above with any addition or exceptions noted below.
[2019-03-18] MEDS: Ibuprofen 800 MG TAB PO SCH ×2 (06:45→14:23)
[2019-03-18] MEDS: Docusate Calcium (SURFAK) 240 MG CAP PO SCH (08:30)
[2019-03-18] MEDS: Ferrous Sulfate 325 MG TAB PO SCH (08:30)
[2019-03-18] MEDS: Prenatal Vitamin 1 TAB PO SCH (08:30)
[2019-03-18 10:07] VITALS: BP 126/87; TEMP 98.2
--- NOTE | 2019-03-20 02:54 | PQF ---
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 Clinical indicators are provided on the bottom of this form for your review Can you please further specify the diagnosis based on the clinical indicators below? Please check appropriate box(s): [ ] Acute blood loss anemia [ ] Post-op anemia related to acute blood loss [ x ] Anemia unspecified [ ] Other diagnosis please specify [ ] Unable to determine In addition, please specify: Present on Admission (POA): [ x ] Yes [ ] No [ ] Unable to determine For continuity of documentation, please document condition throughout progress notes and discharge summary. Thank You. CLINICAL INDICATORS - SIGNS / SYMPTOMS / LABS HP 03/15 Anemia Labor and delivery 03/16 "EBL:375ml" Laboratory:RBC 03/16:3.10 03/17:2.91 Laboratory:Hgb 03/16:10.0 03/17:9.3 Laboratory:Hct 03/16:29.0 03/17:27.6 RISK FACTORS 03/15 - 39 weeks gestation HP 03/15 - Grand multiparity 03/15 - Placental abnormality Labor and delivery 03/16 - s/p Labor and delivery 03/16 - second degree laceration TREATMENTS: Labor and delivery 03/16 - repair of laceration AUG 26 - IVF AUG 26 - Ferrous sulfate 325mg Oral Lab Collected 03/16-03/17 - Hematology monitoring (This form is maintained as a part of the permanent medical record) 2014 [employer]. All Rights Reserved Michi [email or web address] [not provided] KOKOD
== END 2019-03-18 15:50 | disposition home or self-care (01) | DRG 807 ==
LOC: L&D 05:34 → 3SW 21:51
PROVIDERS: ADMIT Emergency Medicine; ATTEND Emergency Medicine
PROC: 10907ZC Drainage of Amniotic Fluid, Therapeutic from Products of Conception, Via Natural or Artificial Opening (ICD-10-PCS; principal; 2019-03-16)
PROC: 10E0XZZ Delivery of Products of Conception, External Approach (ICD-10-PCS; 2019-03-16)
PROC: 0KQM0ZZ Repair Perineum Muscle, Open Approach (ICD-10-PCS; 2019-03-16)
PROC: 3E0P7VZ Introduction of Hormone into Female Reproductive, Via Natural or Artificial Opening (ICD-10-PCS; 2019-03-16)
PROC: 3E033VJ Introduction of Other Hormone into Peripheral Vein, Percutaneous Approach (ICD-10-PCS; 2019-03-16)
DX: O69.82X0 Labor and delivery complicated by other cord entanglement, without compression, not applicable or unspecified (principal); Z37.0 Single live birth; O43.103 Malformation of placenta, unspecified, third trimester; O99.02 Anemia complicating childbirth; D64.9 Anemia, unspecified; O70.1 Second degree perineal laceration during delivery; O71.82 Other specified trauma to perineum and vulva; Z3A.39 39 weeks gestation of pregnancy
CPT/HCPCS: 36415; 51702; 85027; 86780; 86850; 86900; 86901; 87340; J2001; J2590

== ENCOUNTER 2020-03-20 08:27 | Outpatient (CLI) | payer OTHER ==
[2020-03-20 17:54] LABS: SARS-CoV-2 MS2 Positive; SARS-CoV-2 N Gene Negative; SARS-CoV-2 S Gene Negative; SARS-CoV-2 by NAA Not Detected (NotDetected); SARS-CoV-2 orf1ab Negative
== END 2020-03-20 08:28 | disposition home or self-care (01) ==
LOC: LABBT 08:27
PROVIDERS: ATTEND Family Medicine
DX: O09.43 Supervision of pregnancy with grand multiparity, third trimester (principal); Z20.828 Contact with and (suspected) exposure to other viral communicable diseases
CPT/HCPCS: 87635; U0003

== ENCOUNTER 2020-03-23 18:00 | Inpatient (IN) | payer OTHER ==
[~2020-03-23 18:00] MED LIST changes: -Bupivacaine 0.25% HCL 30 ML VIAL ONE; +Bupivacaine/Epinephrine 0.25% 30 ML VIAL ONE
[2020-03-23] MEDS ORDERED: Misoprostol 200 MCG TAB PR PRN (19:12)
[2020-03-23] MEDS ORDERED: Methylergonovine 0.2 MG/ML VIAL IM PRN (19:12)
[2020-03-23] MEDS ORDERED: NS / Oxytocin 40 units/1000ml 1,000 ML IV PRN (19:12)
[2020-03-23] MEDS ORDERED: Carboprost 250 MCG/ML AMP IM PRN (19:12)
[2020-03-23] MEDS ORDERED: Ibuprofen 800 MG TAB PO PRN (19:12)
[2020-03-23] MEDS ORDERED: hydrALAZINE 20 MG/ML VIAL SLOW IVP PRN (19:12)
[2020-03-23] MEDS ORDERED: Butorphanol Tartrate 1 MG/ML VIAL SLOW IVP PRN (19:12)
[2020-03-23] MEDS ORDERED: Lidocaine 1% (PF) 30 ML VIAL SC PRN (19:12)
[2020-03-23] MEDS ORDERED: Meperidine HCl/PF 25 MG/ML VIAL IM/IV PRN (19:12)
[2020-03-23] MEDS ORDERED: Promethazine HCl 25 MG/ML VIAL IM PRN (19:12)
[2020-03-23] MEDS ORDERED: Ondansetron PF 4 MG/2 ML Vial IVP PRN (19:12)
[2020-03-23] MEDS ORDERED: Docusate 100 MG CAP PO PRN (19:12)
[2020-03-23] MEDS: Lactated Ringer's 1,000 ML IV SCH (19:15)
--- NOTE | 2020-03-23 19:24 | PDOC.FPROB ---
FMR OB H&P: HPI - History of Present Illness Chief Complaint: mIOL History of Present Illness: Pt is a 34 yo at 39w ga by a reported LMP and confirmed with a 3T sono who presents for mIOL for IUGR following MFM evaluation and recommendation. Patient is not feeling contractions, endorses good movement and no VB/VD/dysuria/LOF. FMR OB H&P: Current - Care : 8 Para: 7 Gestational age: 39 Due date: 03/30/2020 Dating Criteria: LMP confirmed with 3T sono Course/Complications: IUGR, late to care, AMA, anemia of , BV in (treated) - OB Labs Blood type: O RH: positive Antibody Screen: negative HIV: negative RPR: negative HepBsAg: negative Rubella: immune Gonorrhea: negative Chlamydia: negative A1c: 4.6 GBS: negative H&H: 9.8/30.1 - Additional Ultrasound Additional: U/s on 03/12/20 showed single IUP, growth at 10th percentile, BPP /8, placenta left lateral/fundal FMR OB H&P: History - Past Medical History PMH: asthma, fibroids, anemia - OB History OB History: all previous children delivered at 40wga via - 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: Menarche 11, regular periods LMP 06/24/2019 (unsure) STD: hx of Trich in 2018, treated, Chlamydia at age 19, treated Hx of BV in this , treated - Surgical History Sx History: umbilical hernia repair at 6mos old - Social History Social History: denies tobacco, drugs or alcohol during social alcohol use prior to - Family History Family History: extensive family history of HTN maternal aunt with breast cancer at age 59 FMR OB H&P: Medications - Current Home Medications: Medication Instructions Recorded Confirmed Type Vitamin 1 tab PO DAILY #30 tab 01/20/18 03/23/20 Rx metroNIDAZOLE [Flagyl] 1 tab PO DAILY 03/23/20 03/23/20 History Allergies/Adverse Reactions: Allergies Allergy/AdvReac Type Severity Reaction Status Date / Time No Known Allergies Allergy Verified 03/23/20 19:31 FMR OB H&P: ROS - Review of Systems General: denies: fever/chills, weight/appetite/sleep changes, fatigue Eyes: denies: vision changes Cardiovascular: denies: chest pain, palpitation, edema Respiratory: denies: cough, congestion, shortness of breath Gastrointestinal: denies: abdominal pain, nausea, vomiting, diarrhea, constipation, bright red blood Genitourinary (Female): denies: dysuria, vaginal discharge, vaginal pain, con tractions, vaginal pressure Musculoskeletal: denies: tenderness, decrease range of motion Neurologic: denies: numbness, syncope, seizures, weakness Integumentary: denies: rash, lesions Hematologic/Lymphatic: denies: prolonged or excessive bleeding FMR OB H&P: Vital Signs - Maternal Vital signs: BP: 146/101 Pulse: 70 - Heart Tones Baseline: 145 Variability: moderate Acceleration: absent Deceleration: absent Category: category 1 [place] contractions every: 6-8 min FMR OB H&P: Physical Exam - Physical Exam General: NAD, awake, alert and oriented HEENT: normocephalic and atraumatic, EOMI, conjunctiva clear Neck: supple Heart: RRR, normal S1/S2 General: CTAB, no respiratory distress, good air movement Abdomen: soft, gravid, non-tender Musculoskeletal: pulses present, FROM in all four extremities Neurological: cranial nerves II through XII intact Skin: no rash, good tugor, capillary refill <2 seconds Lymphatic: no unusual bruising or bleeding Psychiatric: intact recent and remote memory, good judgement and insight - Pelvic Exam SVE: 50/-3 Ledesma score: 4 Membranes: intact Presentation: cephalic FMR OB H&P: A/P Disposition: 34 yo at 39 wga by an unsure LMP confirmed with a 3T sono who presents for mIOL for IUGR 1.mIOL -hadlock 10th % as per last [facility] sono -cervical check 50/-3 on admission -Ledesma score 4, will start with cytotec 25mcg q3H -cervical checks as indicated -patient desires epidural -continual monitoring; Cat 1 strip 145bpm +accels, moderate variability on admission with ctx on toco q6-7min -monitor BP, vitals 2. Anemia of -aware, patient on iron and PNV Anticipate . Discussion: Date/Time: 03/23/201923 This H&P was discussed with Dr. Tomlinson and Dr. Blair who agree with the above documentation and plan. Addendum - Attending - Attending Attestation Date/Time: 03/23/20 6740 I personally evaluated the patient and discussed the management with Dr. Stephens. I agree with the History, Examination, Assessment and Plan documented above with any addition or exceptions noted below. Review of records shows EDC based on LMP and consistent with 3rd trimester u/s. Patient was late to care for this . MFM eval revealed IUGR and recommendations to induce at 39 weeks EGA.
[2020-03-23 19:29] VITALS: BMI 28.2
[2020-03-23 20:30] LABS: Hemoglobin 10.9 g/dL (12.0-16.0); Mean Corpuscular HGB CONC 32.8 g/dL (32.0-36.0); Mean Corpuscular Hemoglobin 29.3 pg (27.0-31.0); Mean Corpuscular Volume 89.3 fL (78.0-98.0); Mean Platelet Volume 10.2 fL (7.4-10.4); Platelet Count 252 thou/uL (130-400); RBC Distribution Width 13.1 % (11.5-14.5); Red Blood Cell (RBC) Count 3.74 mill/uL (4.20-5.40); White Blood Cell (WBC) Count 6.8 thou/uL (4.8-10.8)
[2020-03-23] MEDS: Misoprostol 100 MCG TAB VAG SCH ×2 (20:50→23:46)
[2020-03-23 21:07] LABS: Syphilis Antibody Nonreactive (Nonreactive); Syphilis Antibody Index 0.05 S/CO (<1.00 Non-Reactive)
--- NOTE | 2020-03-23 23:05 | PDOC.BPN ---
- Brief Progress Note Notified by Dr Stephens of a deceleration adn tachycardia. Nurse is working with patient for position change and IV fluid bolus. Came to room and reviewed racin since admission. CAt 1 tacing until abot 9:45pm. Since then decelerations noted about every 5 minutes. CTX picked up intermittently. Nurse notes that cervix has changed to 4cm dilated. Maternal vitals normal. Advised mom of FHT findings and that we hopefully position change and IV fluid bolus would resolved decels. Advised possible if FHTs do not recover. Patient is perterbed by this possiblity.
[2020-03-23 23:29] LABS: HBSAg Index 0.12 S/CO (0-0.99); Hep B Surf Ag Non-Reactive S/CO (NonReactive)
[2020-03-23] MEDS ORDERED: Terbutaline Sulfate 1 MG/ML VIAL ONE (23:53)
[2020-03-23] MEDS ORDERED: Terbutaline Sulfate 1 MG/ML VIAL SC SCH (23:59)
--- NOTE | 2020-03-24 00:13 | PDOC.BPN ---
- Brief Progress Note IVf fluid bolus completed, terbutaline given, multiple position cahnges attempted. Not that all interventions ahve been completed we are monitoring theFHT tracing for recovery. Still Cat 2. Will baseline is ow in the 150s, hopefully variability will improve from minimal to moderate shortly. Otherwise, I will advise for delivery, for persistent Cat 2 tracing. Maternal vitals normal except for a few mildly elevated blood pressures. Nurse also just rechecked cervix, dilation remain at 4cm.
--- NOTE | 2020-03-24 00:35 | PDOC.BPN ---
- Brief Progress Note FHTs have not recovered to Cat 1 in spite of measures adn I have recommended. I have Discussed Indication (abnormal FHTs), Risk (bleeding, infection, hysterectomy), Benefit ( health), and Alternatives (continued monitoring). She agreeable to proceed with delivery. Nursing and anesthesia notified.
[2020-03-24] MEDS ORDERED: Fentanyl 4 mcg/Bup 0.1% Cadd 100 ML ONE ×2 (00:42→05:12)
--- NOTE | 2020-03-24 00:44 | PDOC.BPN ---
- Brief Progress Note Over the past 15 minutes FHTs have recovered to a normal baseline, moderate variability, with accels. We are pivoting the care plan to not proceed with , but allow baby to recover and then consider pitocin. Anesthesia is here and patient desires epidural so they are going to place that. Nursing team is aware of new plan.
[2020-03-24] MEDS: Lactated Ringer's 1,000 ML IV SCH ×4 (00:59→21:11)
[2020-03-24] MEDS: Misoprostol 100 MCG TAB VAG SCH ×2 (03:46→04:35)
[2020-03-24] MEDS ORDERED: Milk Of Magnesia 30 ML UDCUP PO PRN (07:01)
[2020-03-24] MEDS ORDERED: NS / Oxytocin 40 units/1000ml 1,000 ML IV SCH (07:01)
[2020-03-24] MEDS ORDERED: Bisacodyl 10 MG SUPP PR PRN (07:01)
[2020-03-24] MEDS ORDERED: hydrALAZINE 20 MG/ML VIAL SLOW IVP PRN (07:01)
[2020-03-24] MEDS: Ferrous Sulfate 325 MG TAB PO SCH ×2 (07:59→17:21)
[2020-03-24] MEDS: Acetaminophen 500 MG TAB PO PRN ×2 (08:56→19:18)
[2020-03-24] MEDS: Ibuprofen 800 MG TAB PO SCH ×2 (08:56→19:18)
[2020-03-24] MEDS: Docusate Calcium (SURFAK) 240 MG CAP PO SCH ×2 (08:56→19:18)
[2020-03-24] MEDS ORDERED: FLU VACC QS2020-21(6MOS UP)/PF 60 MCG/0.5 ML SYRINGE IM ONE (09:00)
[2020-03-24] MEDS ORDERED: Adacel (T-DAP) 0.5 ML SYRINGE IM ONE (09:00)
[2020-03-24] MEDS: Lanolin Ointment 7 GM TUBE TOP PRN (19:18)
[2020-03-25] MEDS ORDERED: Labetalol HCl 100 MG/20 ML VIAL SLOW IVP SCH ×2 (00:30→01:00)
--- NOTE | 2020-03-25 02:25 | PDOC.EVN ---
Event Note - Event Note Event Note: Notified by nurse of elevated BPs: 160/100, 178/104 and 162/107. Went to go evaluate patient. She denies any complaints. Denies AVILES, vision changes, SOB, CP, abdominal pain or swelling. Physical exam negative for any findings. Pre-E labs ordered and labetalol PRN with goal <160/110. Labetalol given x1 with repeat BP 130/79. Will follow up with Pre-E labs and will start Mag if indicated. Continue to monitor vitals.
[2020-03-25 04:37] LABS: Creatinine, Urine 52.12 mg/dL (47-110)
[2020-03-25 05:08] LABS: #Lymphocytes 1.8 thou/uL (1.20-3.40); #Monocytes 0.5 thou/uL (0.11-0.59); #Neutrophils 4.9 thou/uL (1.40-6.50); %Basophils 0.2 % (0.0-1.0); %Eosinophils 0.4 % (0.0-10.0); %Monocytes 6.5 % (0.0-10.0); %Neutrophils 67.9 % (42.0-75.0); Mean Corpuscular HGB CONC 32.9 g/dL (32.0-36.0); Mean Corpuscular Hemoglobin 29.5 pg (27.0-31.0); Mean Corpuscular Volume 89.6 fL (78.0-98.0); Mean Platelet Volume 9.5 fL (7.4-10.4); Platelet Count 224 thou/uL (130-400); RBC Distribution Width 13.1 % (11.5-14.5); Red Blood Cell (RBC) Count 3.04 mill/uL (4.20-5.40); White Blood Cell (WBC) Count 7.3 thou/uL (4.8-10.8)
[2020-03-25 05:25] LABS: ALT (SGPT) 100 U/L (8-55); AST (SGOT) 41 U/L (5-34); Albumin 2.5 g/dL (3.5-5.0); Alkaline Phosphatase 113 U/L (40-110); Anion Gap 11 mmol/L (10-20); BUN (Urea Nitrogen) 7 mg/dL (7.0-18.7); Bilirubin, Total 0.2 mg/dL (0.2-1.2); Calc. Creatinine Clearance 158 mL/min (70-130); Carbon Dioxide 24 mmol/L (22-29); Chloride 108 mmol/L (98-107); Estimated GFR-MDRD Greater than 90; Globulin 2.4 g/dL (2.4-3.5); Glucose 112 mg/dL (70-105); Potassium 3.7 mmol/L (3.5-5.1); Protein, Total 4.9 g/dL (6.0-8.3); Sodium 139 mmol/L (136-145)
[2020-03-25] MEDS: Ibuprofen 800 MG TAB PO SCH ×2 (05:29→18:06)
--- NOTE | 2020-03-25 06:03 | DN ---
DATE OF PROCEDURE: 03/24/2020 DELIVERING PHYSICIAN: Ellen Stephens MD, PGY-1; with Jj Tomlinson MD, PGY-3 ASSISTING/ATTENDING: Dr. Daniel Blair. PROCEDURE: Spontaneous vaginal delivery. ANESTHESIA: Epidural. QBL: 237 mL. PREOPERATIVE DIAGNOSES: 1. Term intrauterine in labor. 2. History of anemia of . 3. History of BV, treated. 4. Late to care. 5. AMA. 6. Intrauterine growth restriction with a [place] of 10%. POSTOPERATIVE DIAGNOSES: 1. Term intrauterine , delivered. 2. History of anemia of . 3. History of BV, treated. 4. Late to care. 5. AMA. 6. Intrauterine growth restriction with a [place] of 10%. INDICATION: This is a 34-year-old female, G8, P7-0-0-7, presents for medical induction of labor due to IUGR. DELIVERY NOTE: This is a 34-year-old female, G8, P7-0-0-7, at 39.1 weeks, who delivered a viable female infant at 0607 on 03/24/2020. The patient was given one dose of 25 mcg Cytotec and was progressing well to 4 cm, 80% effacement, -1 station. However, around midnight, the patient had a persistent category 2 strip. IV fluid bolus was given; and the patient was turned, given oxygen; however, strip remained persistently category 2, being tachycardic in the 160s and was having recurrent late decelerations. It was thought that she would proceed to deliver via c- section, but Terbutaline was given and given and a new baseline in the 150s was established with resolution of the recurrent variable decelerations. She had a few random variables soon after Terbutaline, so close monitoring continued. The patient progressed to 5, 80, -1 at 0225 with tracing showing 155 to 160 beats per minute, moderate variability and positive accelerations, making it a category 1 strip, and subsequently on the next check, the patient was found to be complete with a bulging bag. A vigorous female was delivered over an intact perineum in the OA position. Anterior shoulder and the remainder of the body was delivered. No nuchal cord. The head was held down, and mouth and nares were bulb suctioned. Cord was clamped after delayed cord clamping and cut, and cord blood collected. Placenta delivered intact in Villatoro presentation with a three-vessel cord noted. Of note, placenta also had a large blood clot, and placenta was sent to Pathology. Fundal massage was performed and the fundus was firm, and cervix and vagina were inspected and found to be free of any bleeding lacerations. Of note, there was a first degree perineal laceration that was hemostatic and no reapproximation and repair was needed. went to the nursery in good condition for routine care. Apgars were 9 and 9 at 1 and 5 minute respectively. The patient tolerated delivery well and went to after routine recovery care. Dr. Blair was present and teaching throughout the entire delivery. Job ID: [id number] [email or web address]
[2020-03-25] MEDS ORDERED: Calcium Gluc 4.6 MEQ/10 ML (100 MG/ML) SLOW IVP PRN (06:06)
[2020-03-25] MEDS ORDERED: Magnesium Sulfate 20 GM/WATER 500 ML BAG IVPB SCH (06:15)
[2020-03-25] MEDS: Lactated Ringer's 1,000 ML IV SCH ×2 (06:53→18:00)
--- NOTE | 2020-03-25 07:01 | PDOC.EVN ---
Event Note - Event Note Event Note: Patient's pressures have improved with Labetalol. She has not had any additional severe range pressures. Pre-E labs were ordered with elevated AST and ALT and urine protein/Cr ratio .6g/day which is elevated. Mag started, and patient's nurse notified and she states she will inform L&D. Will perform Mag checks as per protocol.
--- NOTE | 2020-03-25 07:26 | PDOC.PP ---
Post Progress Note Post Day #: 1 Subjective: Patient feeling well, was recently started about an hour ago on Magnesium for elevated BP that started around midnight overnight. She has been eating solid foods, has had BM and been previously walking around room. She has been baby. Discussed contraception options, thinking about IUD vs BTL. PO intake tolerated: yes Flatus: yes Ambulation: yes Vital Signs (12 hours) Temp Pulse Resp BP BP 03/25/20 03:50 97.8 F 71 16 126/79 03/25/20 01:15 74 128/75 03/25/20 01:05 79 130/79 03/25/20 00:59 80 03/25/20 00:01 80 162/107 H 03/24/20 23:15 79 178/104 H 03/24/20 23:00 98.3 F 73 16 160/100 H Weight Weight 79.379 kg - Physical Examination General: NAD Cardiovascular: no m/r/g, RRR Respiratory: clear to auscultation bilaterally, non-labored breathing Abdominal: + bowel sounds, no distention, appropriately TTP Fundus firm & at: umbilicus Extremities: negative homans (B) Skin: no rash Neurological: no gross focal deficits Psychiatric: A&Ox3, normal affect Result Diagrams: 03/25/20 04:15 03/25/20 04:15 Additional Labs: Post Labs Hep Bs Antigen Non-Reactive S/CO (NonReactive) 03/23/20 20:17 Blood Type O POSITIVE 03/23/20 20:17 - Assessment/Plan Pt is a 34 yo at 39w ga by a reported LMP now delivered via at 0607 on 03/24/2020: #Term , now delivered #Elevated BP -routine post- care -currently asymptomatic -monitor vitals, including BP and UOP -placed on Magnesium at 0630, 03/25, will continue 24 hours -mag checks q4h #Anemia of -aware, patient on iron and PNV #Grand Multipara -is G8 now P8008, all past pregnancies delivered at term and were #Bacterial Vaginosis -was taking Flagyl prior to delivery, had for 3 days -will continue Flagyl here for total 7 day course Dispo: Stable, continue Magnesium for elevated pressures. Monitor on L&D unit. Anticipate discharge tomorrow. Addendum - Attending - Attending Attestation Date/Time: 03/25/20 8765 I personally evaluated the patient and discussed the management with Dr. Venegas. I agree with the History, Examination, Assessment and Plan documented above with any addition or exceptions noted below. Developed preE with severe features overnight. Continue mg for 24 hours. Monitor BP. Strict I/Os.
[2020-03-25] MEDS: Ferrous Sulfate 325 MG TAB PO SCH ×2 (10:12→18:06)
[2020-03-25] MEDS: metroNIDAZOLE 500 MG TAB PO SCH ×2 (10:13→21:51)
[2020-03-25] MEDS: Docusate Calcium (SURFAK) 240 MG CAP PO SCH ×2 (10:14→21:54)
--- NOTE | 2020-03-25 11:29 | PDOC.BPN ---
- Brief Progress Note Mag check. Patient has no complaints. Denies shortness of breath, AVILES, or chest pain. DTRs+, producing urine, Heart RRR, Lungs CTAB. Systolic BPs ranging from 100s-120s. Will recheck in 4 hours.
[2020-03-25] MEDS: Magnesium Sulfate 20 gm/500 ml 20 GM/500 ML BAG IVPB SCH (15:20)
--- NOTE | 2020-03-25 16:20 | PDOC.BPN ---
- Brief Progress Note Mag check. Patient has no complaints. Denies shortness of breath, AVILES, or chest pain. DTRs+, producing urine, Heart RRR, Lungs CTAB. Systolic BPs ranging from 100s-120s, with one pressure 144 systolic. Will recheck in 4 hours.
[2020-03-25] MEDS: Acetaminophen 500 MG TAB PO PRN (19:07)
--- NOTE | 2020-03-25 20:33 | PDOC.BPN ---
- Brief Progress Note Encounter Date: 03/25/20 Encounter Time: 20:30 Clinical Mg check performed. Pt denies SOB/dyspnea/CP, but endorses some AVILES. DTRs 2+, no clonus. BP has ranged from 100-135/75-91. Urine output has avg 5.53mL/kg/h. Will recheck in 4hrs.
--- NOTE | 2020-03-26 00:59 | PDOC.BPN ---
- Brief Progress Note Encounter Date: 03/26/20 Encounter Time: 12:40 Clinical Mg check: Grayson(meredith Mccann is doing well. She is laying comfortably in bed in no acute distress and denies SOB/dyspnea/CP. She has a mild AVILES that has been intermittent and is likely d/t the Mg. She has no complaints at this time. She has 2+ DTRs and no clonus. No edema. RRR, no murmurs, lungs CTAB without resp distress. Her BP have ranged from 114-139/82-93. Her HR has ranged from 80-86. Her UOP has been good at 2.44mL/kg/hr. Will recheck in 4 hrs.
[2020-03-26] MEDS: Magnesium Sulfate 20 gm/500 ml 20 GM/500 ML BAG IVPB SCH (01:07)
--- NOTE | 2020-03-26 05:10 | PDOC.BPN ---
- Brief Progress Note Encounter Date: 03/26/20 Encounter Time: 04:30 Clinical Mg check: M(ayush)antonio Mccann is was sleeping comfortably and easily arousable. She had no questions or concerns. She denied SOB/dyspnea/CP/AVILES. She has 2+ DTRs, no clonus, no edema. RRR no murmurs, lungs CTAB without resp distress. BP has been normal ranging from 113-124/72-83 and HR has been normal ranging from 73-78. Urine output has been adequate at 278.75mL/h or 3.48mL/kg/hr. Plan is to stop Mg at approx 0700 this morning.
[2020-03-26] MEDS: Ibuprofen 800 MG TAB PO SCH ×4 (06:09→22:42)
--- NOTE | 2020-03-26 06:45 | PDOC.PP ---
Post Progress Note Post Day #: 2 Subjective: Pt is a 34 yo G8 now P8008 who delivered a viable female at 39.1 wks by . She has OBGYN significant for anemia of , BV - currently being treated for 7 days, and grand multiparity. She subsequently was diagnosed with pre- eclampsia at 0700 on 03/25 after delivery and started magnesium. She only required one dose of labetolol prior to initiation of magnesium. Today she is doing well and denies AVILES, vision changes, N/V, RUQ pain, LE swelling, chest pain, shortness of breath. She has had a BM. She is tolerating PO intake. Endorsed decreasing vaginal bleeding. Has not been up to assess for lightheadedness in the setting of anemia. PO intake tolerated: yes Flatus: yes Ambulation: no Vital Signs (12 hours) Temp Resp 03/25/20 20:03 97.9 F 16 Weight Weight 79.379 kg - Physical Examination General: NAD Cardiovascular: no m/r/g, RRR Respiratory: clear to auscultation bilaterally, non-labored breathing Abdominal: + bowel sounds, lochia, no distention, appropriately TTP Extremities: negative homans (B) Neurological: no gross focal deficits Psychiatric: A&Ox3, normal affect Result Diagrams: 03/25/20 04:15 03/25/20 04:15 Additional Labs: Post Labs Hep Bs Antigen Non-Reactive S/CO (NonReactive) 03/23/20 20:17 Blood Type O POSITIVE 03/23/20 20:17 (1) Anemia Code(s): D64.9 - ANEMIA, UNSPECIFIED Status: Acute (2) Grand multiparity Code(s): Z64.1 - PROBLEMS RELATED TO MULTIPARITY Status: Acute (3) Status: Acute Qualifiers: Weeks of gestation: 39 weeks Qualified Code(s): Z3A.39 - 39 weeks gestation of (4) Term Code(s): Z34.90 - ENCNTR FOR SUPRVSN OF NORMAL , UNSP, UNSP TRIMESTER Status: Acute - Assessment/Plan Pt is a 34 yo G8 now P7007 who delivered at 39.1 wks, KILO by a reported LMP, via at 0607 on 03/24/2020: #Term , now delivered - continue PNV's - pt would like tubal ligation for PP contraception #Pre-E -routine post- care - transition to post- and d/c Magnesium after 24 hours. Will monitor for 24 hours. Currently BP's were at goal except for 1 reading mildly elevated but less than SBP 160. Good UOP. -currently asymptomatic -monitor vitals, including BP and UOP #Anemia of -aware, patient on iron and PNV -asymptomatic - monitor with ambulation #Grand Multipara -is G8 now P8008, all past pregnancies delivered at term and were #Bacterial Vaginosis -was taking Flagyl prior to delivery, had for 3 days -will continue Flagyl here for total 7 day course - currently on day 5 Dispo: Monitor BP's for [address] Castillo, Dr. Gillis. Addendum - Attending - Attending Attestation Date/Time: 03/26/20 6420 I personally evaluated the patient and discussed the management with the team. I agree with the History, Examination, Assessment and Plan documented above with any addition or exceptions noted below.
[2020-03-26] MEDS: metroNIDAZOLE 500 MG TAB PO SCH ×2 (09:42→21:27)
[2020-03-26] MEDS: Docusate Calcium (SURFAK) 240 MG CAP PO SCH ×2 (09:42→21:27)
[2020-03-26] MEDS: Ferrous Sulfate 325 MG TAB PO SCH ×2 (09:43→17:56)
[2020-03-26] MEDS ORDERED: HYDROcodone/Acetaminophen 5/325 mg Tablet PO SCH (11:02)
[2020-03-26 12:01] LABS: ALT (SGPT) 90 U/L (8-55); AST (SGOT) 32 U/L (5-34); Albumin 2.9 g/dL (3.5-5.0); Alkaline Phosphatase 125 U/L (40-110); Anion Gap 12 mmol/L (10-20); BUN (Urea Nitrogen) 5 mg/dL (7.0-18.7); Bilirubin, Total 0.3 mg/dL (0.2-1.2); Calc. Creatinine Clearance 158 mL/min (70-130); Carbon Dioxide 21 mmol/L (22-29); Chloride 109 mmol/L (98-107); Estimated GFR-MDRD Greater than 90; Glucose 94 mg/dL (70-105); Potassium 4.3 mmol/L (3.5-5.1); Protein, Total 5.9 g/dL (6.0-8.3); Sodium 138 mmol/L (136-145)
[2020-03-26] MEDS: Lactated Ringer's 1,000 ML IV SCH (16:58)
[2020-03-26] MEDS: Acetaminophen 500 MG TAB PO PRN (17:56)
[2020-03-26] MEDS ORDERED: Ketorolac Tromethamine 30 MG/ML VIAL IVP SCH (18:00)
[2020-03-27] MEDS ORDERED: HYDROcodone/Acetaminophen 10/325 mg Tablet PO PRN (00:04)
[2020-03-27] MEDS: Ibuprofen 800 MG TAB PO SCH ×2 (00:53→09:47)
[2020-03-27] MEDS: Lanolin Ointment 7 GM TUBE TOP PRN (00:55)
--- NOTE | 2020-03-27 06:43 | PDOC.PP ---
Post Progress Note Post Day #: 3 Subjective: Pt is a 34 yo G8 now P8008 who delivered at 39.1 wks by who was diagnosed with pre-e after delivery and subsequently started on magnesium for 24 hours. 24 hours after discontinuation of magnesium pt had 1 elevated pressure, SBP 150's, and subsequently went to 125/85. She is asymptomatic, ambulating well, passing flatus, had a BM, tolerating PO intake. She wants tubal ligation. Abdominal pain improved with toradol and norco. Today pain is 4/10. PO intake tolerated: yes Flatus: yes Ambulation: yes Vital Signs (12 hours) Temp Pulse Resp BP Pulse Ox 03/27/20 00:01 97.9 F 59 L 16 153/89 H 100 03/26/20 19:16 98.7 F 70 16 137/91 H 100 Weight Weight 79.379 kg - Physical Examination General: NAD Cardiovascular: no m/r/g, RRR Respiratory: clear to auscultation bilaterally Abdominal: + bowel sounds, no distention, appropriately TTP Extremities: negative homans (B) Skin: CS incision dry & intact, no rash Neurological: no gross focal deficits Psychiatric: A&Ox3, normal affect Result Diagrams: 03/25/20 04:15 03/27/20 11:22 Additional Labs: Post Labs Hep Bs Antigen Non-Reactive S/CO (NonReactive) 03/23/20 20:17 Blood Type O POSITIVE 03/23/20 20:17 (1) Anemia Code(s): D64.9 - ANEMIA, UNSPECIFIED Status: Acute (2) Grand multiparity Code(s): Z64.1 - PROBLEMS RELATED TO MULTIPARITY Status: Acute (3) Status: Acute Qualifiers: Weeks of gestation: 39 weeks Qualified Code(s): Z3A.39 - 39 weeks gestation of (4) Term Code(s): Z34.90 - ENCNTR FOR SUPRVSN OF NORMAL , UNSP, UNSP TRIMESTER Status: Acute - Assessment/Plan Pt is a 34 yo G8 now P7007 who delivered at 39.1 wks, KILO by a reported LMP, via at 0607 on 03/24/2020: #Term , now delivered Post-delivery day 3 - continue PNV's - pt would like tubal ligation for PP contraception - pain controlled - will continue motrin at this time #Pre-E -1 elevated BP overnight which improved without intervention. Discussed symptoms, close follow up and daily BP monitoring if pt is to be discharged today - will discuss on rounds -currently asymptomatic #Anemia of -aware, patient on iron and PNV -asymptomatic #Grand Multipara -is G8 now P8008, all past pregnancies delivered at term and were #Bacterial Vaginosis -was taking Flagyl prior to delivery, had for 3 days -will continue Flagyl here for total 7 day course - currently on day 6 Dispo: Likely discharge - will discuss on round. Discussed with continuity provider, Dr. Castillo. Addendum - Attending - Attending Attestation Date/Time: 03/27/20 9983 I personally evaluated the patient and discussed the management with the team. I agree with the History, Examination, Assessment and Plan documented above with any addition or exceptions noted below. No severe pressures for ~48 hours, off mag for >24 hours. Hopeful dc this PM if continues to do well. Home BP monitoring and f/u in 1 week.
[2020-03-27] MEDS: Ferrous Sulfate 325 MG TAB PO SCH (09:47)
[2020-03-27] MEDS: Docusate Calcium (SURFAK) 240 MG CAP PO SCH (09:47)
[2020-03-27] MEDS: metroNIDAZOLE 500 MG TAB PO SCH (09:47)
[2020-03-27] MEDS ORDERED: FLU VACC QS2020-21(6MOS UP)/PF 60 MCG/0.5 ML SYRINGE IM ONE (11:30)
[2020-03-27 12:20] VITALS: BP 135/81; TEMP 97.9
[2020-03-27 12:42] LABS: ALT (SGPT) 73 U/L (8-55); AST (SGOT) 33 U/L (5-34); Alkaline Phosphatase 122 U/L (40-110); Anion Gap 10 mmol/L (10-20); BUN (Urea Nitrogen) 8 mg/dL (7.0-18.7); Bilirubin, Total 0.3 mg/dL (0.2-1.2); Calc. Creatinine Clearance 146 mL/min (70-130); Calcium 8.9 mg/dL (7.8-10.44); Carbon Dioxide 25 mmol/L (22-29); Chloride 106 mmol/L (98-107); Estimated GFR-MDRD Greater than 90; Globulin 2.9 g/dL (2.4-3.5); Glucose 63 mg/dL (70-105); Potassium 4.2 mmol/L (3.5-5.1); Protein, Total 5.9 g/dL (6.0-8.3); Sodium 137 mmol/L (136-145)
== END 2020-03-27 14:15 | disposition home or self-care (01) | DRG 806 ==
LOC: L&D 18:23 → 3SW 03-24 08:43 → L&D 03-25 07:50 → 3SW 03-26 09:30
PROVIDERS: ADMIT Family Medicine; ATTEND Family Medicine
PROC: 10E0XZZ Delivery of Products of Conception, External Approach (ICD-10-PCS; principal; 2020-03-24)
DX: O36.5930 Maternal care for other known or suspected poor fetal growth, third trimester, not applicable or unspecified (principal); O23.593 Infection of other part of genital tract in pregnancy, third trimester; Z37.0 Single live birth; Z3A.39 39 weeks gestation of pregnancy; O99.02 Anemia complicating childbirth; D64.9 Anemia, unspecified; B96.89 Other specified bacterial agents as the cause of diseases classified elsewhere; O76 Abnormality in fetal heart rate and rhythm complicating labor and delivery; O70.9 Perineal laceration during delivery, unspecified; O14.15 Severe pre-eclampsia, complicating the puerperium
CPT/HCPCS: 36415; 51702; 80053; 82570; 84156; 85027; 86780; 86850; 86900; 86901; 87340; 88307; J1885; J3105; J3475

== ENCOUNTER 2020-12-06 17:26 | Emergency (ER) | payer OTHER | END 2020-12-06 20:47 | disposition home or self-care (01) | LOC: ERS 17:26 | DX: R22.0 Localized swelling, mass and lump, head (principal); J45.909 Unspecified asthma, uncomplicated; F17.210 Nicotine dependence, cigarettes, uncomplicated | CPT/HCPCS: 99283 ==

== ENCOUNTER 2021-02-25 15:25 | Emergency (ER) | payer OTHER ==
[2021-02-26 02:13] LABS: SARS-CoV-2 PCR by NAA Not Detected (NotDetected)
== END 2021-02-25 16:50 | disposition home or self-care (01) ==
LOC: ERS 15:25
DX: Z20.822 Contact with and (suspected) exposure to COVID-19 (principal)
CPT/HCPCS: 99283; U0003; U0005

== ENCOUNTER 2022-08-24 10:35 | Emergency (ER) | payer OTHER | END 2022-08-24 11:44 | disposition home or self-care (01) | LOC: ERS 10:35 | DX: H65.93 Unspecified nonsuppurative otitis media, bilateral (principal) | CPT/HCPCS: 99282 ==

== ENCOUNTER 2022-10-12 14:38 | Emergency (ER) | payer OTHER ==
[2022-10-12 17:46] LABS: SARS-CoV-2 NAA Rapid Test Not Detected (NotDetected)
== END 2022-10-12 17:40 | disposition home or self-care (01) ==
LOC: ERS 14:38
DX: J06.9 Acute upper respiratory infection, unspecified (principal); B30.9 Viral conjunctivitis, unspecified; Z20.822 Contact with and (suspected) exposure to COVID-19
CPT/HCPCS: 99283

== ENCOUNTER 2023-01-12 15:38 | Emergency (ER) | payer OTHER ==
[2023-01-12] MEDS ORDERED: Ketorolac Tromethamine 30 MG/ML VIAL ONE (15:49)
== END 2023-01-12 16:17 | disposition home or self-care (01) ==
LOC: ERS 15:38
DX: M25.571 Pain in right ankle and joints of right foot (principal); M79.671 Pain in right foot
CPT/HCPCS: 96372; J1885

== ENCOUNTER 2023-04-26 16:27 | Emergency (ER) | payer OTHER | END 2023-04-26 17:18 | disposition home or self-care (01) | LOC: ERS 16:27 | DX: K04.7 Periapical abscess without sinus (principal); K02.9 Dental caries, unspecified | CPT/HCPCS: 99282 ==

== ENCOUNTER 2023-04-26 20:44 | Emergency (ER) | payer OTHER ==
[2023-04-26] MEDS ORDERED: HYDROcodone/Acetaminophen 5/325 mg Tablet ONE (22:56)
[2023-04-26] MEDS ORDERED: Ketorolac Tromethamine 30 MG/ML VIAL ONE (22:56)
== END 2023-04-26 23:04 | disposition home or self-care (01) ==
LOC: ERS 20:44
DX: K08.89 Other specified disorders of teeth and supporting structures (principal); R03.0 Elevated blood-pressure reading, without diagnosis of hypertension
CPT/HCPCS: 96372; 99282; J1885

== ENCOUNTER 2023-08-15 19:18 | Emergency (ER) | payer OTHER ==
[2023-08-15 22:03] LABS: Influenza A by NAA DETECTED (NotDetected); Influenza B by NAA Not Detected (NotDetected); SARS-CoV-2 NAA Rapid Test Not Detected (NotDetected)
== END 2023-08-15 22:15 | disposition home or self-care (01) ==
LOC: ERS 19:18
DX: J10.1 Influenza due to other identified influenza virus with other respiratory manifestations (principal)
CPT/HCPCS: 99283

== ENCOUNTER 2024-04-29 13:20 | Emergency (ER) | payer SELFPAY ==
[2024-04-29] MEDS ORDERED: Aspirin Chewable 81 MG TAB ONE (13:42)
[2024-04-29 14:01] LABS: #Basophils Less than 0.03 10x3/uL (0.0-0.2); %Basophils 0.2 % (0.0-1.0); %Eosinophils 0.8 % (0.0-10.0); %Lymphocytes 18.3 % (21.0-51.0); %Monocytes 5.4 % (0.0-10.0); Hematocrit 36.5 % (36.0-47.0); Hemoglobin 11.5 g/dL (12.0-16.0); Mean Corpuscular HGB CONC 31.5 g/dL (32.0-36.0); Mean Corpuscular Hemoglobin 28.2 pg (27.0-31.0); Mean Corpuscular Volume 89.5 fL (78.0-98.0); Mean Platelet Volume 10.1 fL (7.4-10.4); Platelet Count 397 10x3/uL (130-400); RBC Distribution Width 14.1 % (11.5-14.5); Red Blood Cell (RBC) Count 4.08 mill/uL (4.20-5.40)
[2024-04-29 14:06] LABS: BHCG - Serum Negative (NEGATIVE); Pregs Control Background? CLEAR/WHITE (CLR/WHITE); Pregs Control Bar Appear? YES (CONTROL BAR)
[2024-04-29 14:12] LABS: Lipase 9 U/L (8-78); Magnesium 1.9 mg/dL (1.6-2.6)
[2024-04-29 14:19] LABS: Troponin I Less than 0.010 ng/mL (< 0.028)
[2024-04-29 14:20] LABS: Bacteria/HPF None Seen HPF (None Seen); Bilirubin Negative (Negative); Blood, Urine Negative (Negative); CAUTI Indications for Culture Pelvic or flank pain; Clarity Clear (Clear); Glucose, Urine (Dipstick) Normal (Negative); Ketone, Urine Negative (Negative); Leukocyte Negative Leu/uL (Negative); Nitrite Negative (Negative); Protein, Urine (Dipstick) 20 mg/dL (Neg-Trace); RBC/HPF 0-3 HPF (0-3); Specific Gravity, Urine 1.035 (1.002-1.036); WBC/HPF 0-3 HPF (0-3)
[2024-04-29 14:22] LABS: Urine Culture Reflex No No
[2024-04-29] MEDS ORDERED: Ketorolac Tromethamine 30 MG (1 mL) VIAL ONE (15:27)
[2024-04-29 16:29] LABS: ALT (SGPT) 10 U/L (8-55); AST (SGOT) 16 U/L (5-34); Albumin 3.5 g/dL (3.5-5.0); Alkaline Phosphatase 77 U/L (40-110); Anion Gap 12 mmol/L (10-20); BUN (Urea Nitrogen) 9 mg/dL (7.0-18.7); Bilirubin, Total 0.4 mg/dL (0.2-1.2); Calc. Creatinine Clearance 0 mL/min (70-130); Calcium 9.1 mg/dL (7.8-10.44); Carbon Dioxide 22 mmol/L (22-29); Chloride 110 mmol/L (98-107); Estimated GFR 92; Globulin 3.3 g/dL (2.4-3.5); Glucose 103 mg/dL (70-105); Potassium 3.9 mmol/L (3.5-5.1); Protein, Total 6.8 g/dL (6.0-8.3); Sodium 140 mmol/L (136-145)
== END 2024-04-29 18:47 | disposition home or self-care (01) ==
LOC: ERS 13:20
DX: R07.9 Chest pain, unspecified (principal); Z55.0 Illiteracy and low-level literacy
CPT/HCPCS: 36415; 71045; 80053; 81001; 83690; 83735; 84484; 84703; 85025; 93005; 96374; J1885